=== PATIENT | female | born 1965 | race Hispanic/Latino ===

== ENCOUNTER 2017-01-20 10:48 | Day surgery (SDC) | payer OTHER ==
[2017-01-20] MEDS ORDERED: Lactated Ringer's 500 ML IV ONE (11:27)
[2017-01-20 13:21] VITALS: O2SAT 99
[2017-01-20] MEDS ORDERED: Propofol 10 mg/ml Inj (20 ML) ONE (14:16)
[2017-01-20 14:59] VITALS: TEMP 98
[2017-01-20 15:08] VITALS: BP 110/70; PULSE 80; RESP 14
== END 2017-01-20 15:23 | disposition home or self-care (01) ==
LOC: H.ENDO 10:48
PROVIDERS: ATTEND Internal Medicine Gastroenterology
DX: Z12.11 Encounter for screening for malignant neoplasm of colon (principal); K64.8 Other hemorrhoids; Q43.8 Other specified congenital malformations of intestine